=== PATIENT | female | born 1985 | race American Indian/Alaskan Native ===

== ENCOUNTER 2019-06-21 08:35 | Emergency (ER) | payer MEDICAID, OTHER ==
[2019-06-21 09:03] VITALS: BP 121/61
--- NOTE | 2019-06-21 10:20 | Emergency Department Report ---
ED Back Pain/Injury HPI - General Chief Complaint: Extremity Problem,Nontraumatic Stated Complaint: r ankle pain Time Seen by Provider: 06/21/19 09:59 Source: patient Limitations: No Limitations - History of Present Illness Initial Comments: 33 yo aa female comes to ER with r foot and ankle pain. No known injury. Refusing to walk. no fall/trauma. states she just woke up like this. 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 Complaint: other -: Sudden, days(s) Similar Symptoms Previously: No Place: home Severity: severe Quality: aching Consistency: constant Improves With: immobilization Worsens With: movement Context: unknown Associated Symptoms: denies other symptoms - Related Data Previous Rx's Medication Instructions Recorded Last Taken Type Ibuprofen [Motrin] 800 mg PO Q8HR PRN #30 tablet 06/21/19 Unknown Rx Allergies Allergy/AdvReac Type Severity Reaction Status Date / Time No Known Allergies Allergy Verified 08/29/13 05:33 ED Review of Systems ROS: Stated complaint: RT LEG SHARP PAIN/RT KNEE PAIN Other details as noted in HPI Comment: All other systems reviewed and negative ED Past Medical Hx - Past Medical History Medical history: no medical history Family history: no significant family history ED Back Pain Physical Exam - Exam General: Vital signs noted. No distress. Alert and acting appropriately. Back/Abdomen: No Abdominal Tenderness, No Perithoracic Tenderness, No Perilumbar Tenderness, No Sacroiliac Tenderness, No Flank Tenderness, No Straight Leg Raise Pain Neuro: Yes Normal Sensation, Yes Normal DTR's, Yes Normal Gait, No Motor Weakness ED Course Vital Signs 06/21/19 09:00 Temperature 97.7 F Pulse Rate 70 Respiratory 16 Rate Blood Pressure 121/61 [Left] O2 Sat by Pulse 97 Oximetry Ed Back Pain Tests - Tests Tests: Normal X Rays ED Medical Decision Making - Radiology Data Radiology results: report reviewed, image reviewed - Medical Decision Making pain lat mal area. no swelling full rom while sitting refuses to put weight on it. dp /pt plus 2 no edema calf soft xray neg mandy/crutches dc home with ortho follow up Vital Signs 06/21/19 09:00 Temperature 97.7 F Pulse Rate 70 Respiratory 16 Rate Blood Pressure 121/61 [Left] O2 Sat by Pulse 97 Oximetry - Differential Diagnosis ro fx Critical care attestation.: If time is entered above; I have spent that time in minutes in the direct care of this critically ill patient, excluding procedure time. ED Disposition Clinical Impression: Ankle pain Disposition: TO HOME OR SELFCARE Is pt being admited?: No Does the pt Need Aspirin: No Condition: Stable Additional Instructions: alternate ice/heat motrin for pain follow up with Dr Enriquez should pain persist elevate for comfort activity as tolerated Prescriptions: Ibuprofen [Motrin] 800 mg PO Q8HR PRN #30 tablet PRN Reason: Pain, Moderate (4-6) Referrals: TANGELA ENRIQUEZ MD [Staff Physician] - 3-5 Days Time of Disposition: 10:43
--- NOTE | 2019-06-21 10:33 | XRay Report ---
RIGHT ANKLE 2 VIEWS. INDICATION / CLINICAL INFORMATION: pain COMPARISON: None available. FINDINGS: BONES / JOINT(S): No acute fracture or subluxation. No significant arthritis. SOFT TISSUES: No significant abnormality. ADDITIONAL FINDINGS: None. Signer Name: Manas Zelaya MD Signed: 06/21/2019 10:29 AM Workstation Name: [id number]
[2019-06-21] MEDS ORDERED: IBUPROFEN 800 MG TAB PO ONE (10:42)
== END 2019-06-21 11:09 | disposition home or self-care (01) ==
LOC: ED 08:35
DX: M25.571 Pain in right ankle and joints of right foot (principal); Z79.1 Long term (current) use of non-steroidal anti-inflammatories (NSAID)
CPT/HCPCS: 99284

== ENCOUNTER 2021-11-03 17:55 | Emergency (ER) | payer MEDICAID, OTHER ==
[2021-11-03 18:53] VITALS: BP 138/74
[2021-11-03] MEDS ORDERED: SODIUM CHLORIDE 0.9% 1000 ML 1,000 ML IV ONE (19:39)
[2021-11-03] MEDS ORDERED: ONDANSETRON 4 MG/2 ML INJ IV ONE (20:26)
--- NOTE | 2021-11-03 20:35 | Ultrasound Report ---
ULTRASOUND OBSTETRIC Indication: Pelvic pain Findings: There is a single, living intrauterine . Zarephath-rump length = 1.8 cm = 8 weeks, 2 day(s). Small subchorionic hemorrhage heart rate is 166 beats per minute. The ovaries are normal. There is no free fluid. Incidentally a scar is identified anteriorl y within the lower uterus. Impression: Single, living intrauterine with estimated sonographic age of 8 weeks, 2 day(s). Small 7 x 4 mm subchorionic hemorrhage noted. Signer Name: Shashi Morton MD Signed: 11/03/2021 8:30 PM Workstation Name: [id number]
[2021-11-03 20:44] LABS: Basophils % (Auto) 0.3 % (0.0-1.8); Eosinophils # (Auto) 0.1 K/mm3 (0.0-0.4); Eosinophils % (Auto) 0.3 % (0.0-4.3); Hematocrit 37.9 % (30.3-42.9); Lymphocytes # (Auto) 3.5 K/mm3 (1.2-5.4); Lymphocytes % (Auto) 22.1 % (13.4-35.0); Mean Corpuscular HGB Conc 34 % (30-34); Mean Corpuscular Volume 85 fl (79-97); Monocytes # (Auto) 0.8 K/mm3 (0.0-0.8); Monocytes % (Auto) 4.9 % (0.0-7.3); Platelet Count 223 K/mm3 (140-440); Red Blood Count 4.48 M/mm3 (3.65-5.03); Red Cell Distribution Width 13.8 % (13.2-15.2)
[2021-11-03 21:05] LABS: Alanine Aminotransferase 32 units/L (7-56); Albumin 4.2 g/dL (3.9-5); BUN/Creatinine Ratio 13; Blood Urea Nitrogen 9 mg/dL (7-17); Hemolysis Index 5
[2021-11-03] MEDS ORDERED: POTASSIUM CHLORIDE ER 20 MEQ TAB PO ONE (21:12)
--- NOTE | 2021-11-03 23:31 | Emergency Department Report ---
ED N/V/D HPI - General Chief complaint: Nausea/Vomiting/Diarrhea Stated complaint: SHARP LT SIDE/VOMITTING/2MTHS Time Seen by Provider: 11/03/21 19:34 Source: patient Mode of arrival: Ambulatory Limitations: No Limitations - History of Present Illness Initial comments: n/v x 2 days, pain in left flank complaint: nausea, vomiting, abdominal pain -: days(s) Associated Abdominal Pain: Yes Location: flank (left) Severity: mild Pain Scale: 3 Quality: aching Consistency: intermittent - Related Data Previous Rx's Medication Instructions Recorded Last Taken Type Ibuprofen [Motrin] 800 mg PO Q8HR PRN #30 tablet 06/21/19 Unknown Rx Nitrofurantoin [place]/M-Cryst 100 mg PO Q12HR #14 capsule 11/04/21 Unknown Rx [Macrobid CAP] Allergies Allergy/AdvReac Type Severity Reaction Status Date / Time No Known Allergies Allergy Verified 11/03/21 18:53 ED Review of Systems ROS: Stated complaint: SHARP LT SIDE/VOMITTING/2MTHS Other details as noted in HPI Constitutional: denies: chills, fever Eyes: denies: eye pain, eye discharge, vision change ENT: denies: ear pain, throat pain Respiratory: denies: cough, shortness of breath, wheezing Cardiovascular: denies: chest pain, palpitations Endocrine: no symptoms reported Gastrointestinal: denies: abdominal pain, nausea, diarrhea Genitourinary: denies: urgency, dysuria, discharge Musculoskeletal: denies: back pain, joint swelling, arthralgia Skin: denies: rash, lesions Neurological: denies: headache, weakness, paresthesias Psychiatric: denies: anxiety, depression Hematological/Lymphatic: denies: easy bleeding, easy bruising ED Past Medical Hx - Past Medical History Previous Medical History?: No - Social History Smoking Status: Never Smoker Substance Use Type: None - Medications Home Medications: Home Medications Medication Instructions Recorded Confirmed Last Taken Type Ibuprofen [Motrin] 800 mg PO Q8HR PRN #30 tablet 06/21/19 Unknown Rx Nitrofurantoin [place]/M-Cryst 100 mg PO Q12HR #14 capsule 11/04/21 Unknown Rx [Macrobid CAP] ED Physical Exam - General Limitations: No Limitations General appearance: alert, in no apparent distress - Head Head exam: Present: atraumatic, normocephalic - Eye Eye exam: Present: normal appearance - ENT ENT exam: Present: mucous membranes moist - Neck Neck exam: Present: normal inspection - Respiratory Respiratory exam: Present: normal lung sounds bilaterally. Absent: respiratory distress - Cardiovascular Cardiovascular Exam: Present: regular rate, normal rhythm. Absent: systolic murmur, diastolic murmur, rubs, gallop - GI/Abdominal GI/Abdominal exam: Present: soft, normal bowel sounds - Extremities Exam Extremities exam: Present: normal inspection - Back Exam Back exam: Present: normal inspection - Neurological Exam Neurological exam: Present: alert, oriented X3 - Psychiatric Psychiatric exam: Present: normal affect, normal mood - Skin Skin exam: Present: warm, dry, intact, normal color. Absent: rash ED Course Vital Signs 11/03/21 11/04/21 18:52 01:19 Temperature 98.3 F Pulse Rate 81 86 Respiratory 14 20 Rate Blood Pressure 138/74 O2 Sat by Pulse 97 98 Oximetry - Reevaluation(s) Reevaluation #1: 11/03/21 23:31 US showed 8 weeks 2 days , work up negative , normal US ED Medical Decision Making - Lab Data Result diagrams: 11/03/21 19:47 11/03/21 19:47 Critical care attestation.: If time is entered above; I have spent that time in minutes in the direct care of this critically ill patient, excluding procedure time. ED Disposition Clinical Impression: UTI (urinary tract infection) during Disposition: 01 HOME / SELF CARE / HOMELESS Is pt being admited?: No Does the pt Need Aspirin: No Condition: Stable Prescriptions: Nitrofurantoin [place]/M-Cryst [Macrobid CAP] 100 mg PO Q12HR #14 capsule Referrals: PRIMARY CARE, [Primary Care Provider] - 3-5 Days
[2021-11-04 00:33] LABS: HCG Qualitative,Urine Positive (Negative)
[2021-11-04 00:44] LABS: Bacteria,Urine 1+ /HPF (Negative); Mucus,Urine 2+ /HPF
[2021-11-04 00:45] LABS: Bilirubin,Urine NEG (Negative); Blood,Urine MOD (Negative); Color,Urine Yellow (Yellow); Urobilinogen,Urine < 2.0 mg/dL (<2.0)
== END 2021-11-04 01:19 | disposition home or self-care (01) ==
LOC: ED 17:55
DX: O21.9 Vomiting of pregnancy, unspecified (principal); O26.891 Other specified pregnancy related conditions, first trimester; R10.9 Unspecified abdominal pain; Z3A.08 8 weeks gestation of pregnancy
CPT/HCPCS: 36415; 76817; 80053; 81001; 81025; 82150; 83690; 85025; 87086; 96361; 96374; 99284; J7030; Q0162